=== PATIENT | male | born 1990 | race African-American/Black ===

== ENCOUNTER → 2016-10-25 | Outpatient (CLI) | payer OTHER ==
--- NOTE | 2016-10-25 11:28 | REP ---
BILATERAL MAMMOGRAM: Bilateral mammogram performed in the MLO and CC projections. There is bilateral symmetrical retroareolar fibroglandular density consistent with gynecomastia. No suspicious mass or nodule is seen. There is no architectural distortion. No clustered microcalcifications are seen. IMPRESSION: ACR 2 benign. Symmetrical gynecomastia bilaterally without suspicious mass or clustered microcalcifications. This mammogram was interpreted with the aid of an FDA-approved computer-aided detection system. The patient states she/he had a clinical breast exam in 10/2016. The patient letter being requested is M2. Signed by Chano Paulino MD 10/25/2016 03:30 P
== END ==
LOC: M RAD 10:39
PROVIDERS: ATTEND Plastic Surgery
DX: N62 Hypertrophy of breast (principal)

== ENCOUNTER 2017-05-08 07:34 | Emergency (ER) | payer OTHER ==
[~2017-05-08] VITALS: Ht 175.3 cm; Wt 111.4 kg
--- NOTE | 2017-05-08 10:07 | REP ---
Scrotal ultrasound including Doppler assessment: The patient complains of right testicular pain. The testes are normal size. The right testis measures 3.6 x 2.3 x 3.0 cm. Left testis measures 3.6 x 1.9 x 2.6 cm. With Doppler assessment there is vascular flow in both testes. The Doppler resistive index of the intraparenchymal arteries on the right is 0.51 on the left 0.53. The right testis has a heterogeneous echotexture and with color Doppler. There is increased vascular flow compared to the left. Findings are compatible with right testicular orchitis. The right epididymal head measures 11 mm and left epididymal head 6.8 mm. There are no epididymal head masses or cysts. Vascular flow in the epididymal heads appears bilaterally symmetric. There is a small right varicocele. Impression: The findings are compatible with right orchitis. No evidence of epididymitis. Additionally, there is a small right varicocele. . Signed by Chano Garcia MD 05/08/2017 09:58 A
[2017-05-08] MEDS ORDERED: DOXY100C37 PO (10:09)
[2017-05-08] MEDS ORDERED: DOXYCYCLINE HYCLATE 100 MG TAB PO ONE (10:15)
[2017-05-08 10:26] VITALS: BP 129/94
--- NOTE | 2017-05-09 08:14 | REP ---
Bilateral renal ultrasonography for hernia: With Valsalva omental fat can be seen entering the upper inguinal canals bilaterally. This reduces spontaneously upon release of Valsalva. Impression: Bilateral fat containing inguinal hernias with Valsalva that spontaneously reduce upon release of Valsalva. Signed by Chano Garcia MD 05/09/2017 08:05 A
== END 2017-05-08 10:32 | disposition home or self-care (01) ==
LOC: M ED 07:34
DX: N45.2 Orchitis (principal); K40.10 Bilateral inguinal hernia, with gangrene, not specified as recurrent; Z86.39 Personal history of other endocrine, nutritional and metabolic disease